=== PATIENT | female | born 2005 | race Two or more races ===

== ENCOUNTER 2023-12-03 00:26 | Inpatient (IN) | payer MEDICAID ==
[~2023-12-03] VITALS: Ht 157.5 cm; Wt 111.1 kg
[2023-12-03] MEDS ORDERED: LORazepam 2 MG TABLET PO PRN (01:45)
[2023-12-03] MEDS ORDERED: HALOPERIDOL 5 MG TABLET PO PRN (01:45)
[2023-12-03] MEDS ORDERED: ZOLPIDEM TARTRATE 10 MG TABLET PO PRN (01:45)
[2023-12-03 02:07] LABS: GLUCOMETER DEV NAME(LOC) POC.BV; POC SARS-COV2 AG, FIA NEGATIVE (NEGATIVE)
[2023-12-03 02:25] VITALS: BP 138/56; PULSE 81; RESP 18; TEMP 97.5; O2SAT 98
[2023-12-03 02:52] LABS: GLUCOMETER DEV NAME(LOC) BV2S.; GLUCOSE,POINT OF CARE 104 MG/DL (70-110)
[2023-12-03] MEDS ORDERED: IBUPROFEN 400 MG TABLET PO PRN (03:00)
[2023-12-03] MEDS: PNEUMOCOCCAL VACCINE POLYVALENT 0.5 ML SYRINGE [PPSV23] IM. ONE (05:00)
[2023-12-03] MEDS: MetFORMIN HCL 500 MG TABLET PO SCH (06:11)
[2023-12-03 08:18] VITALS: BP 112/58; PULSE 83; RESP 17; TEMP 98; O2SAT 100
[2023-12-03] MEDS: ESCITALOPRAM OXALATE 10 MG TABLET PO SCH (12:00)
[2023-12-03] MEDS ORDERED: GLUCAGON,HUMAN RECOMBINANT 1 MG VIAL IM PRN (15:00)
[2023-12-03] MEDS ORDERED: INSULIN LISPRO 100 UNITS/ML SQ PRN (15:00)
[2023-12-03 16:32] LABS: GLUCOMETER DEV NAME(LOC) BV2S.; GLUCOSE,POINT OF CARE 166 MG/DL (70-110)
[2023-12-03 20:31] VITALS: BP 106/69; PULSE 90; RESP 19; TEMP 98.7; O2SAT 100
[2023-12-04] MEDS ORDERED: PETROLATUM,WHITE 28 GM JELLY TP PRN (06:30)
[2023-12-04] MEDS ORDERED: NICOTINE 14 MG/24 HOUR PATCH TD PRN (06:30)
[2023-12-04] MEDS ORDERED: LOPERAMIDE HCL 2 MG CAPSULE PO PRN (06:30)
[2023-12-04] MEDS ORDERED: GuaiFENesin/D-METHORPHAN [SUGAR-FREE] 200-20MG/10 ML SYRUP UDCUP PO PRN (06:30)
[2023-12-04] MEDS ORDERED: ALBUTEROL SULFATE HFA 90 MCG/PUFF 8 GM INHALER IH PRN (06:30)
[2023-12-04] MEDS ORDERED: CloNIDine HCL 0.1 MG TABLET PO PRN (06:30)
[2023-12-04] MEDS ORDERED: MAG HYDROX/ALUMINUM HYD/SIMETH ES 30 ML SUSPENSION UDCUP PO PRN (06:30)
[2023-12-04 07:45] LABS: BASOPHILS % (AUTO) 0.2 % (0.0-2.0); EOSINOPHILS % (AUTO) 1.2 % (1.0-6.0); HEMATOCRIT 39.4 % (36-46); HEMOGLOBIN 13.1 g/dL (12.0-16.0); LYMPHOCYTES # (AUTO) 2.5 K/uL (1.0-4.8); MEAN CORPUSCULAR HEMOGLOBIN 25.6 pg (26.0-34.0); MEAN CORPUSCULAR HGB CONC 33.2 G/dL (31.0-37.0); MEAN CORPUSCULAR VOLUME 77 fL (80-100); MONOCYTES # (AUTO) 0.5 K/uL (0.1-1.0); MONOCYTES % (AUTO) 4.4 % (2.0-9.0); NEUTROPHILS # (AUTO) 8.6 K/uL (1.8-7.7); NEUTROPHILS % (AUTO) 73.2 % (40.0-70.0); PLATELET COUNT (AUTO) 238 K/uL (150-450); RED BLOOD CELL COUNT(AUTO) 5.11 MIL/uL (4.00-5.20); RED CELL DISTRIBUTION WIDTH 14.1 % (11.5-14.5); WHITE BLOOD COUNT (AUTO) 11.7 K/uL (4.5-11.0)
[2023-12-04 07:55] LABS: HEMOGLOBIN A1C 6.1 % (3.8-5.6)
[2023-12-04 08:13] VITALS: BP 118/74; PULSE 89; RESP 17; TEMP 97.6; O2SAT 98
[2023-12-04 08:17] LABS: ALANINE AMINOTRANSFERASE 56 U/L (12-78); ALBUMIN 3.4 g/dL (3.4-5.0); ALKALINE PHOSPHATASE 88 U/L (46-116); ANION GAP 12 mmol/L (8-16); ASPARTATE AMINOTRANSFERASE 32 U/L (15-37); CALCIUM, TOTAL 9.7 mg/dL (8.8-10.5); CARBON DIOXIDE 26 mmol/L (22-29); CHLORIDE 101 mmol/L (98-107); CHOL/HDL RATIO 4.3 (3.9-5.7); CHOLESTEROL 162 mg/dL (131-200); CREATININE 0.59 mg/dL (0.60-1.30); GLOMERULAR FILTR. RATE CALC > 60 mL/min (>60); GLUCOSE,RANDOM 106 mg/dL (70-110); HCG,QUANTITATIVE < 1 mIU/mL (0-6); HDL CHOLESTEROL 38 mg/dL (40-60); LDL CHOL (CALC.) 95 mg/dL (0-130); POTASSIUM 3.8 mmol/L (3.5-5.1); SODIUM SERUM 139 mmol/L (136-145); TOTAL PROTEIN, SERUM 7.3 g/dL (6.4-8.2); TRIGLYCERIDES 145 mg/dL (15-150); UREA NITROGEN, BLOOD 14 mg/dL (7-18)
[2023-12-04 15:18] VITALS: RESP 18; O2SAT 98
[2023-12-04] MEDS: IBUPROFEN 400 MG TABLET PO PRN (15:19)
[2023-12-04 16:18] VITALS: RESP 17; O2SAT 98
[2023-12-04 19:45] VITALS: BP 133/83; PULSE 86; RESP 18; TEMP 97.4; O2SAT 99
[2023-12-04 20:19] VITALS: BP 121/75; PULSE 77; RESP 19; TEMP 97.2; O2SAT 98
[2023-12-04] MEDS ORDERED: TraMADol HCL 50 MG TABLET PO PRN (21:00)
[2023-12-04] MEDS: ONDANSETRON HCL 4 MG TABLET PO PRN (22:42)
[2023-12-05 08:02] VITALS: BP 101/60; PULSE 65; RESP 12; TEMP 97.8; O2SAT 95
[2023-12-05 08:24] LABS: BASOPHILS % (AUTO) 0.3 % (0.0-2.0); EOSINOPHILS % (AUTO) 1.5 % (1.0-6.0); HEMATOCRIT 39.2 % (36-46); HEMOGLOBIN 13.2 g/dL (12.0-16.0); LYMPHOCYTES # (AUTO) 2.2 K/uL (1.0-4.8); LYMPHOCYTES % (AUTO) 22.8 % (22.0-44.0); MEAN CORPUSCULAR HEMOGLOBIN 25.9 pg (26.0-34.0); MEAN CORPUSCULAR HGB CONC 33.8 G/dL (31.0-37.0); MEAN CORPUSCULAR VOLUME 77 fL (80-100); MONOCYTES # (AUTO) 0.5 K/uL (0.1-1.0); MONOCYTES % (AUTO) 5.5 % (2.0-9.0); NEUTROPHILS # (AUTO) 6.9 K/uL (1.8-7.7); NEUTROPHILS % (AUTO) 69.9 % (40.0-70.0); PLATELET COUNT (AUTO) 258 K/uL (150-450); RED BLOOD CELL COUNT(AUTO) 5.12 MIL/uL (4.00-5.20); RED CELL DISTRIBUTION WIDTH 14.2 % (11.5-14.5); WHITE BLOOD COUNT (AUTO) 9.8 K/uL (4.5-11.0)
[2023-12-05 08:54] LABS: ALANINE AMINOTRANSFERASE 50 U/L (12-78); ALBUMIN 3.3 g/dL (3.4-5.0); ALKALINE PHOSPHATASE 87 U/L (46-116); ANION GAP 9 mmol/L (8-16); ASPARTATE AMINOTRANSFERASE 31 U/L (15-37); BILIRUBIN,TOTAL 0.7 mg/dL (0.1-1.0); CALCIUM, TOTAL 9.4 mg/dL (8.8-10.5); CARBON DIOXIDE 27 mmol/L (22-29); CHLORIDE 102 mmol/L (98-107); CHOL/HDL RATIO 3.8 (3.9-5.7); CHOLESTEROL 149 mg/dL (131-200); CREATININE 0.56 mg/dL (0.60-1.30); GLOMERULAR FILTR. RATE CALC > 60 mL/min (>60); GLUCOSE,RANDOM 79 mg/dL (70-110); HDL CHOLESTEROL 39 mg/dL (40-60); LDL CHOL (CALC.) 87 mg/dL (0-130); POTASSIUM 3.9 mmol/L (3.5-5.1); SODIUM SERUM 138 mmol/L (136-145); THYROID STIMULATING HORMONE 1.95 uIU/mL (0.36-3.74); TOTAL PROTEIN, SERUM 7.3 g/dL (6.4-8.2); TRIGLYCERIDES 114 mg/dL (15-150); UREA NITROGEN, BLOOD 11 mg/dL (7-18)
[2023-12-05 09:24] LABS: LIPASE 25 U/L (16-77)
[2023-12-05 10:52] LABS: RBC MORPHOLOGY COMMENT ABNORMAL RBC MORPH
[2023-12-05 16:16] VITALS: BP 111/60; PULSE 85; RESP 18; TEMP 97.7; O2SAT 97
[2023-12-05] MEDS: DOCUSATE SODIUM 100 MG CAPSULE PO PRN (20:27)
[2023-12-05 20:54] VITALS: BP 101/67; PULSE 82; RESP 16; TEMP 96.8; O2SAT 98
[2023-12-05] MEDS ORDERED: ESCI-8 PO (23:03)
[2023-12-06 08:09] VITALS: BP 106/61; PULSE 81; RESP 18; TEMP 97.9; O2SAT 97
[2023-12-06 08:26] LABS: APPEARANCE,URINE CLEAR (CLEAR); BILIRUBIN,URINE NEGATIVE (NEGATIVE); COLOR,URINE YELLOW (YELLOW); GLUCOSE, URINE (UA) NEGATIVE (NEGATIVE); KETONES,URINE NEGATIVE (NEGATIVE); LEUKOCYTE ESTERASE ,URINE NEGATIVE (NEGATIVE); NITRATE,URINE NEGATIVE (NEGATIVE); OCCULT BLOOD,URINE NEGATIVE (NEGATIVE); PROTEIN,URINE NEGATIVE (NEGATIVE); UROBILINOGEN,URINE <=1.0 mg/dL (<=1.0)
[2023-12-06 08:31] LABS: ALCOHOL, URINE DRUG SCREEN NEGATIVE (NEGATIVE); AMPHET/METH SCREEN,URINE NEGATIVE (NEGATIVE); BARBITURATE SCREEN, URINE NEGATIVE (NEGATIVE); BENZODIAZEPINES SCREEN,URINE NEGATIVE (NEGATIVE); CANNABINOID SCREEN,URINE NEGATIVE (NEGATIVE); COCAINE SCREEN,URINE NEGATIVE (NEGATIVE); METHADONE SCREEN, URINE NEGATIVE (NEGATIVE); OPIATE SCREEN,URINE NEGATIVE (NEGATIVE); PHENCYCLIDINE SCREEN,URINE NEGATIVE (NEGATIVE)
[2023-12-06 08:50] VITALS: RESP 18; O2SAT 97
[2023-12-06 09:50] VITALS: RESP 17; O2SAT 97
[2023-12-06 20:00] VITALS: BP 128/78; PULSE 87; RESP 18; TEMP 97.6; O2SAT 98
[2023-12-06 20:02] VITALS: BP 128/78; PULSE 87; RESP 18; TEMP 97.6; O2SAT 98
[2023-12-06] MEDS: MAGNESIUM HYDROXIDE SUSPENSION 30 ML UDCUP PO PRN (20:02)
[2023-12-07 08:17] VITALS: BP 110/52; PULSE 86; RESP 18; TEMP 97.9; O2SAT 97
[2023-12-07] MEDS ORDERED: ESCI-8 PO (10:36)
[2023-12-07] MEDS ORDERED: METF-1211 PO (11:09)
== END 2023-12-07 12:10 | disposition home or self-care (01) | DRG 751 ==
LOC: B2S 01:48
PROVIDERS: ADMIT Psychiatry & Neurology Psychiatry; ATTEND Psychiatry & Neurology Psychiatry
PROC: GZHZZZZ Group Psychotherapy (ICD-10-PCS; principal; 2023-12-03)
PROC: GZ56ZZZ Individual Psychotherapy, Supportive (ICD-10-PCS; 2023-12-03)
DX: F33.2 Major depressive disorder, recurrent severe without psychotic features (principal); E11.9 Type 2 diabetes mellitus without complications; K75.81 Nonalcoholic steatohepatitis (NASH); R45.851 Suicidal ideations; Z20.822 Contact with and (suspected) exposure to COVID-19; G47.00 Insomnia, unspecified; E66.9 Obesity, unspecified; Z68.41 Body mass index [BMI] 40.0-44.9, adult; Z88.6 Allergy status to analgesic agent; F84.0 Autistic disorder; Z79.899 Other long term (current) drug therapy
CPT/HCPCS: 80053; 80061; 80307; 81003; 82248; 82962; 83036; 83690; 84443; 84702; 85025; 86592; Q0162

== ENCOUNTER 2023-12-05 10:14 | Emergency (ER) | payer MEDICAID ==
[~2023-12-05] VITALS: Ht 157.5 cm; Wt 115.5 kg
[2023-12-05 10:21] VITALS: TEMP 98.8
[2023-12-05] MEDS: FAMOTIDINE 20 MG TABLET PO ONE (11:59)
[2023-12-05] MEDS: MAG HYDROX/ALUMINUM HYD/SIMETH ES 30 ML SUSPENSION UDCUP PO ONE (11:59)
[2023-12-05 15:24] VITALS: BP 112/57; PULSE 80; RESP 18
[2023-12-05] MEDS ORDERED: ESCI-8 PO (23:03)
== END 2023-12-05 15:27 | disposition short-term general hospital (02) ==
LOC: EMS 10:14
DX: R10.12 Left upper quadrant pain (principal); E11.9 Type 2 diabetes mellitus without complications; F32.A Depression, unspecified; Z88.6 Allergy status to analgesic agent
CPT/HCPCS: 74176; 99285; Z7502; Z7610